=== PATIENT | female | born 1945 | race Caucasian/White ===

== ENCOUNTER 2018-07-14 15:48 | Emergency (ER) | payer MEDICARE, OTHER ==
[2018-07-14] MEDS ORDERED: NORMAL SALINE 1000 ML 1,000 ML IV PRN (16:02)
--- NOTE | 2018-07-14 16:53 | ER Document Report ---
ED General - General Chief Complaint: Fall Injury Stated Complaint: FELL HIT HEAD Time Seen by Provider: 07/14/18 15:58 Mode of Arrival: Wheelchair Information source: Patient Notes: This is a 72-year-old female with a history of breast cancer status post chemotherapy (3 years ago) who presents to the emergency room after a fall at home. Patient was walking down her driveway which is on a slight decline and she lost her footing and fell on her face. She denies loss of consciousness. She does have a an abrasion to the forehead. She is not sure when her last tetanus shot was. Other than some abrasions to the face, she denies any significant pain. TRAVEL OUTSIDE OF THE [place] IN LAST 30 DAYS: No - HPI Onset: Just prior to arrival Onset/Duration: Sudden Quality of pain: Dull Severity: Moderate Pain Level: 2 Associated symptoms: denies: Chest pain, Fever, Shortness of breath Exacerbated by: Denies Relieved by: Denies Similar symptoms previously: No Recently seen / treated by doctor: No - Related Data Allergies/Adverse Reactions: No Known Allergies Allergy (Verified 07/14/18 15:50) Past Medical History - General Information source: Patient - Social History Smoking Status: Unknown if Ever Smoked Cigarette use (# per day): No Chew tobacco use (# tins/day): No Frequency of alcohol use: Occasional Drug Abuse: None Lives with: Family Family History: None Patient has suicidal ideation: No Patient has homicidal ideation: No - Past Medical History Cardiac Medical History: Reports: Hx Hypercholesterolemia, Hx Hypertension Endocrine Medical History: Reports: Hx Diabetes Mellitus Type 2 Renal/ Medical History: Denies: Hx Peritoneal Dialysis GI Medical History: Reports: Hx Gastroesophageal Reflux Disease Past Surgical History: Reports: Hx Breast Surgery - lumpectomy, Hx Cholecystectomy Review of Systems - Review of Systems Constitutional: denies: Chills, Fever EENT: See HPI Cardiovascular: No symptoms reported Respiratory: No symptoms reported Gastrointestinal: No symptoms reported Genitourinary: No symptoms reported Female Genitourinary: No symptoms reported Musculoskeletal: No symptoms reported Skin: No symptoms reported Hematologic/Lymphatic: No symptoms reported Neurological/Psychological: See HPI Physical Exam - Vital signs Vitals: Temp Pulse Resp BP Pulse Ox 97.8 F 109 H 16 151/106 H 97 07/14/18 15:53 07/14/18 15:53 07/14/18 15:53 07/14/18 15:53 07/14/18 15:53 Notes: Physical exam: GENERAL: Patient is alert and oriented x3, no acute distress. HEAD: Normocephalic. Patient does have abrasions to the forehead. No obvious depressed skull fractures. EYES: Pupils equal round and reactive to light, extraocular movements intact, sclera anicteric, conjunctiva are normal. ENT: TMs normal, nares patent, oropharynx clear without exudates. Moist mucous membranes. NECK: Normal range of motion, supple without obvious mass or JVD. LUNGS: Breath sounds clear to auscultation bilaterally and equal. No wheezes rales or rhonchi. HEART: Regular rate and rhythm without murmurs, rubs or gallops. ABDOMEN: Soft, normoactive bowel sounds. No tenderness to palpation. No guarding, no rebound. No masses appreciated. EXTREMITIES: Normal range of motion, no pitting or edema. No clubbing or cyanosis. NEUROLOGICAL: Cranial nerves II through XII grossly intact. Normal speech, moving all extremities. PSYCH: Normal mood, normal affect. SKIN: Raisins to the face. Course - Vital Signs Vital signs: Temp Pulse Resp BP Pulse Ox 97.8 F 89 18 138/90 H 100 07/14/18 15:53 07/14/18 18:43 07/14/18 18:43 07/14/18 18:43 07/14/18 18:43 - Laboratory Result Diagrams: 07/14/18 16:37 07/14/18 16:37 Laboratory results interpreted by me: 07/14/18 16:37 Sodium 135.7 L Chloride 97 L Glucose 197 H - Diagnostic Test Radiology reviewed: Image reviewed, Reports reviewed - CT of the head and neck showed no acute injury - EKG Interpretation by Me Rate: Normal Rhythm: NSR - EKG shows normal sinus rhythm with a ventricular rate of 97, no acute ST-T wave changes Discharge - Discharge Clinical Impression: Contusions to the face, Status post fall, Concussion Hypertension Qualifiers: Hypertension type: unspecified Qualified Code(s): I10 - Essential (primary) hypertension Condition: Stable Disposition: HOME, SELF-CARE Instructions: Concussion ([facility]), Tetanus Immunization Given ([facility]) Additional Instructions: As we discussed, the CTs of the head and neck look good. Your labs were acceptable. I want you to apply bacitracin to your abrasions daily. Keep them open to air. No restrictions on activity. Follow-up with your primary care doctor: Bring a copy of today's labs with you. Return to the emergency room for worsening pain, headache, any concerns or getting worse. Your blood pressure was elevated in the ER today, most likely from the events leading up to why you are here. I would follow-up with your doctor for repeat blood pressure check. Prescriptions: Bacitracin Zinc [Bacitracin Oint 15 gm] 1 applic TP DAILY #1 tube Forms: Elevated Blood Pressure Referrals: BARBARA MONTESINOS MD [Primary Care Provider] - Follow up as needed
[2018-07-14] MEDS ORDERED: DIPH/PERTUSS(ACELL)/TETANUS VAC/PF 0.5 ML SYR (>=10YO) IM ONE (16:54)
[2018-07-14 16:57] LABS: ABSOLUTE EOSINOPHILS # (AUTO) 0.2 10^3/uL (0.0-0.6); ABSOLUTE MONOCYTES (AUTO) 0.6 10^3/uL (0.1-1.4); ABSOLUTE NEUT (AUTO) 4.2 10^3/uL (1.7-8.2); BASOPHILS % (AUTO) 0.6 % (0-2); EOSINOPHILS % (AUTO) 3.5 % (0-6); HEMATOCRIT 44.1 % (36.0-47.0); HEMOGLOBIN 15.4 g/dL (12.0-15.5); MEAN CORPUSCULAR HEMOGLOBIN 32.5 pg (27.0-33.4); MEAN CORPUSCULAR HGB CONC 34.9 g/dL (32.0-36.0); MEAN CORPUSCULAR VOLUME 93 fl (80-97); MONOCYTES % (AUTO) 10.5 % (3-13); PLATELET COUNT 251 10^3/uL (150-450); RED BLOOD COUNT 4.72 10^6/uL (3.72-5.28); RED CELL DISTRIBUTION WIDTH 13.2 % (11.5-14.0); SEGMENTED NEUTROPHILS % (AUTO) 68.4 % (42-78); TOTAL CELLS COUNTED % (AUTO) 100 %; WHITE BLOOD COUNT 6.2 10^3/uL (4.0-10.5)
[2018-07-14 17:15] LABS: ALANINE AMINOTRANSFERASE 45 U/L (9-52); ALBUMIN 4.5 g/dL (3.5-5.0); ALKALINE PHOSPHATASE 82 U/L (38-126); ANION GAP 13 (5-19); ASPARTATE AMINO TRANSFERASE 34 U/L (14-36); BILIRUBIN,DIRECT 0.4 mg/dL (0.0-0.4); BLOOD UREA NITROGEN 13 mg/dL (7-20); CALCIUM 10.1 mg/dL (8.4-10.2); CARBON DIOXIDE 26 mmol/L (22-30); CHLORIDE 97 mmol/L (98-107); CREATINE KINASE 90 U/L (30-135); GLUCOSE 197 mg/dL (75-110); POTASSIUM 4.3 mmol/L (3.6-5.0); SODIUM 135.7 mmol/L (137-145); TOTAL PROTEIN 6.6 g/dL (6.3-8.2)
[2018-07-14 17:27] LABS: TROPONIN I < 0.012 ng/mL
--- NOTE | 2018-07-14 17:38 | RADIOLOGY REPORT (SQ) ---
EXAM DESCRIPTION: CT HEAD WITHOUT COMPLETED DATE/TIME: 07/14/2018 5:09 pm REASON FOR STUDY: Head injury, neck injury, fall COMPARISON: None. TECHNIQUE: Axial images acquired through the brain without intravenous contrast. Images reviewed wi th bone, brain and subdural windows. Additional sagittal and coronal reconstructions were generated. Images stored on PACS. All CT scanners at this facility use dose modulation, iterative reconstruction, and/or weight based d osing when appropriate to reduce radiation dose to as low as reasonably achievable (ALARA). [facility]: Dose Right [facility]: CareDose [facility]: Dose Right [facility]: Teradose 4D [facility]: Smart [employer] RADIATION DOSE: CT Rad equipment meets quality standard of care and radiation dose reduction techniq ues were employed. CTDIvol: 53.2 mGy. DLP: 1017 mGy-cm. mGy. LIMITATIONS: None. FINDINGS: VENTRICLES: Normal size and contour. CEREBRUM: No masses. No hemorrhage. No midline shift. No evidence for acute infarction. Normal gra y/white matter differentiation. No areas of low density in the white matter. CEREBELLUM: No masses. No hemorrhage. No alteration of density. No evidence for acute infarction. EXTRAAXIAL SPACES: No fluid collections. No masses. ORBITS AND GLOBE: No intra- or extraconal masses. Normal contour of globe without masses. CALVARIUM: No fracture. PARANASAL SINUSES: No fluid or mucosal thickening. SOFT TISSUES: No mass or hematoma. OTHER: No other significant finding. IMPRESSION: NORMAL BRAIN CT WITHOUT CONTRAST. EVIDENCE OF ACUTE STROKE: NO. COMMENT: Quality ID # [id number]: Final reports with documentation of one or more dose reduction techniques (e.g., Automated exposure control, adjustment of the mA and/or kV according to patient size, use of iterative reconstruction technique) TECHNICAL DOCUMENTATION: JOB ID: [id number] [employer]- All Rights Reserved Reading location - IP/workstation name: [email or web address]
--- NOTE | 2018-07-14 17:40 | RADIOLOGY REPORT (SQ) ---
EXAM DESCRIPTION: CT CERVICAL SPINE WITHOUT COMPLETED DATE/TIME: 07/14/2018 5:09 pm REASON FOR STUDY: Head injury, neck injury, fall COMPARISON: None. TECHNIQUE: Axial images acquired through the cervical spine without intravenous contrast. Images re viewed with lung, soft tissue and bone windows. Reconstructed coronal and sagittal MPR images review ed. Images stored on PACS. All CT scanners at this facility use dose modulation, iterative reconstruction, and/or weight based d osing when appropriate to reduce radiation dose to as low as reasonably achievable (ALARA). [facility]: Dose Right [facility]: CareDose [facility]: Dose Right [facility]: Teradose 4D [facility]: Smart [employer] RADIATION DOSE: CT Rad equipment meets quality standard of care and radiation dose reduction techniq ues were employed. CTDIvol: 21.5 mGy. DLP: 487 mGy-cm. mGy. LIMITATIONS: None. FINDINGS: ALIGNMENT: Anatomic. MINERALIZATION: Normal. VERTEBRAL BODIES: No fractures or dislocation. DISCS: Multilevel disc space narrowing with osteophytes. FACETS, LATERAL MASSES, POSTERIOR ELEMENTS: Facet arthropathy. No fractures. No dislocation. No ac atka findings. HARDWARE: None in the spine. VISUALIZED RIBS: No fractures. LUNG APICES AND SOFT TISSUES: No significant or acute findings. OTHER: No other significant finding. IMPRESSION: CHRONIC DEGENERATIVE CHANGES. NO ACUTE FINDINGS. TECHNICAL DOCUMENTATION: JOB ID: [id number] Quality ID # [id number]: Final reports with documentation of one or more dose reduction techniques (e.g., Au tomated exposure control, adjustment of the mA and/or kV according to patient size, use of iterative reconstruction technique) 2010 [employer]- All Rights Reserved Reading location - IP/workstation name: [email or web address]
[2018-07-14 18:43] VITALS: BP 138/90
--- NOTE | 2018-07-14 19:23 | EKG REPORT ---
SEVERITY:- OTHERWISE NORMAL ECG - SINUS RHYTHM BORDERLINE LEFT AXIS DEVIATION : Confirmed by: Gonzales Scott MD 14-Jul-2018 19:22:35
== END 2018-07-14 18:43 | disposition home or self-care (01) ==
LOC: ER 15:48
DX: S06.0X0A Concussion without loss of consciousness, initial encounter (principal); S00.83XA Contusion of other part of head, initial encounter; W17.89XA Other fall from one level to another, initial encounter; Y92.008 Other place in unspecified non-institutional (private) residence as the place of occurrence of the external cause; E11.9 Type 2 diabetes mellitus without complications; I10 Essential (primary) hypertension; Z85.3 Personal history of malignant neoplasm of breast; Z92.21 Personal history of antineoplastic chemotherapy
CPT/HCPCS: 36415; 70450; 72125; 80053; 82550; 82553; 84484; 85025; 90471; 90715; 93005; 93010; 99285

== ENCOUNTER 2018-12-14 14:08 | Emergency (ER) | payer MEDICARE, OTHER ==
[2018-12-14] MEDS ORDERED: ACETAMINOPHEN 325 MG TABLET PO ONE (15:37)
[2018-12-14] MEDS ORDERED: ACETAMINOPHEN 325 MG TABLET ONE (15:39)
--- NOTE | 2018-12-14 15:42 | ER Document Report ---
ED Medical Screen (RME) - General Chief Complaint: Fall Injury Stated Complaint: FALL/HEAD INJURY Time Seen by Provider: 12/14/18 15:37 Primary Care Provider: BARBARA MONTESINOS MD [Primary Care Provider] - Follow up as needed Mode of Arrival: Ambulatory Information source: Patient TRAVEL OUTSIDE OF THE [place] IN LAST 30 DAYS: No - HPI Notes: 12/14/18 15:38 Rapid medical exam triage note: Patient is a 73-year-old female states she was walking in her garage and slipped falling forward striking her face. The patient has contusion and abrasion along the face also abrasions on both hands where she went to catch herself. There is no pre-syncope or lightheadedness, and she states she just caught her shoes when she went forward. Patient reports headache since the incident. There is no loss of consciousness. She denies any numbness or focal weakness. No neck pain or back pain or chest pain or abdominal pain. No numbness or paresthesia. On physical exam HEENT there is contusion and abrasion. No facial tenderness but she does describe headache overlying the contusion. Neck nontender Back nontender Cardiovascular regular rate and rhythm without appreciable murmur gallop or rubs Lungs clear to auscultation bilaterally Abdomen obese nontender Extremities no other musculoskeletal tenderness Skin shows abrasions on the hands. Neurologic exam no motor or sensory deficit no cerebellar ataxia no other abnormality. Impression head injury with contusions and abrasions. Tetanus is up-to-date. Will order head CT and local wound care and Tylenol. Please see rest of partner's note for further evaluation and care. 12/14/18 15:40 - Related Data Allergies/Adverse Reactions: No Known Allergies Allergy (Verified 12/14/18 15:04) Past Medical History - General Information source: Patient - Social History Chew tobacco use (# tins/day): No Frequency of alcohol use: None Drug Abuse: None Lives with: Family Family history: Reviewed & Not Pertinent - Past Medical History Cardiac Medical History: Reports: Hx Hypercholesterolemia, Hx Hypertension Endocrine Medical History: Reports: Hx Diabetes Mellitus Type 2 Renal/ Medical History: Denies: Hx Peritoneal Dialysis GI Medical History: Reports: Hx Gastroesophageal Reflux Disease Past Surgical History: Reports: Hx Breast Surgery - lumpectomy, Hx Cholecystectomy Physical Exam - Vital signs Vitals: Temp Pulse Resp BP Pulse Ox 98.1 F 68 16 156/92 H 96 12/14/18 14:35 12/14/18 14:35 12/14/18 14:35 12/14/18 14:35 12/14/18 14:35 Course - Vital Signs Vital signs: Temp Pulse Resp BP Pulse Ox 98.1 F 68 16 156/92 H 96 12/14/18 14:35 12/14/18 14:35 12/14/18 14:35 12/14/18 14:35 12/14/18 14:35 Doctor's Discharge - Discharge Referrals: BARBARA MONTESINOS MD [Primary Care Provider] - Follow up as needed
--- NOTE | 2018-12-14 15:57 | RADIOLOGY REPORT (SQ) ---
EXAM DESCRIPTION: CT HEAD WITHOUT COMPLETED DATE/TIME: 12/14/2018 3:51 pm REASON FOR STUDY: fall r/o bleed COMPARISON: CT brain 07/14/2018 TECHNIQUE: Axial images acquired through the brain without intravenous contrast. Images reviewed wi th bone, brain and subdural windows. Additional sagittal and coronal reconstructions were generated. Images stored on PACS. All CT scanners at this facility use dose modulation, iterative reconstruction, and/or weight based d osing when appropriate to reduce radiation dose to as low as reasonably achievable (ALARA). [facility]: Dose Right [facility]: CareDose [facility]: Dose Right [facility]: Teradose 4D [facility]: [employer] RADIATION DOSE: CT Rad equipment meets quality standard of care and radiation dose reduction techniq ues were employed. CTDIvol: 53.2 mGy. DLP: 937 mGy-cm. mGy. LIMITATIONS: None. FINDINGS: VENTRICLES: Normal size and contour. CEREBRUM: No masses. No hemorrhage. No midline shift. No evidence for acute infarction. Normal gra y/white matter differentiation. No areas of low density in the white matter. CEREBELLUM: No masses. No hemorrhage. No alteration of density. No evidence for acute infarction. EXTRAAXIAL SPACES: No fluid collections. No masses. ORBITS AND GLOBE: No intra- or extraconal masses. Normal contour of globe without masses. CALVARIUM: No fracture. PARANASAL SINUSES: No fluid or mucosal thickening. SOFT TISSUES: No mass or hematoma. OTHER: No other significant finding. IMPRESSION: NORMAL BRAIN CT WITHOUT CONTRAST. EVIDENCE OF ACUTE STROKE: NO. COMMENT: Quality ID # 436: Final reports with documentation of one or more dose reduction techniques (e.g., Automated exposure control, adjustment of the mA and/or kV according to patient size, use of iterative reconstruction technique) TECHNICAL DOCUMENTATION: JOB ID: [id number] [employer]- All Rights Reserved Reading location - IP/workstation name: [email or web address]
[2018-12-14 17:38] VITALS: BP 152/72
--- NOTE | 2018-12-14 17:40 | ER Document Report ---
ED General - General Chief Complaint: Fall Injury Stated Complaint: FALL/HEAD INJURY Time Seen by Provider: 12/14/18 15:37 Primary Care Provider: BARBARA MONTESINOS MD [Primary Care Provider] - Follow up as needed Mode of Arrival: Ambulatory Information source: Patient TRAVEL OUTSIDE OF THE [place] IN LAST 30 DAYS: No - HPI Notes: Patient is a 73-year-old female states she was walking in her garage and slipped falling forward striking her face. The patient has contusion and abrasion along the face also abrasions on both hands where she went to catch herself. There is no pre-syncope or lightheadedness, and she states she just caught her shoes when she went forward. Patient reports headache since the incident. There is no loss of consciousness. She denies any numbness or focal weakness. No neck pain or back pain or chest pain or abdominal pain. No numbness or paresthesia. - Related Data Allergies/Adverse Reactions: No Known Allergies Allergy (Verified 12/14/18 15:04) Past Medical History - General Information source: Patient - Social History Smoking Status: Never Smoker Chew tobacco use (# tins/day): No Frequency of alcohol use: None Drug Abuse: None Lives with: Family Family History: None Patient has suicidal ideation: No Patient has homicidal ideation: No - Past Medical History Cardiac Medical History: Reports: Hx Hypercholesterolemia, Hx Hypertension Endocrine Medical History: Reports: Hx Diabetes Mellitus Type 2 Renal/ Medical History: Denies: Hx Peritoneal Dialysis GI Medical History: Reports: Hx Gastroesophageal Reflux Disease Past Surgical History: Reports: Hx Breast Surgery - lumpectomy, Hx Cholecystectomy Review of Systems - Review of Systems -: Yes All other systems reviewed and negative Physical Exam - Vital signs Vitals: Temp Pulse Resp BP Pulse Ox 98.1 F 68 16 156/92 H 96 12/14/18 14:35 12/14/18 14:35 12/14/18 14:35 12/14/18 14:35 12/14/18 14:35 - Notes Notes: PHYSICAL EXAMINATION: GENERAL: Well-appearing, well-nourished and in no acute distress. HEAD: Midline forehead contusion and abrasion. No crepitance or bony deformity. EYES: Pupils equal round and reactive to light, extraocular movements intact, conjunctiva are normal. ENT: Nares patent, oropharynx clear without exudates. Moist mucous membranes. NECK: Normal range of motion, supple without lymphadenopathy LUNGS: Breath sounds clear to auscultation bilaterally and equal. No wheezes rales or rhonchi. HEART: Regular rate and rhythm without murmurs ABDOMEN: Soft, nontender, nondistended abdomen. No guarding, no rebound. No masses appreciated. Female : deferred Musculoskeletal: Normal range of motion, no pitting or edema. NEUROLOGICAL: Cranial nerves grossly intact. Normal speech, normal gait. Normal sensory, motor exams. No cerebellar ataxia. No other acute abnormality noted. PSYCH: Normal mood, normal affect. SKIN: Warm, Dry, normal turgor. Minor abrasions on both hands. No crepitance or bony deformity or foreign body or evidence for cellulitis. Course - Re-evaluation Re-evalutation: 12/14/18 17:39 CT of the head was negative for acute intracranial process. Patient was able to ambulate per her baseline. - Vital Signs Vital signs: Temp Pulse Resp BP Pulse Ox 98.1 F 68 16 156/92 H 96 12/14/18 14:35 12/14/18 14:35 12/14/18 14:35 12/14/18 14:35 12/14/18 14:35 Discharge - Discharge Clinical Impression: Abrasion Head injury Qualifiers: Encounter type: initial encounter Qualified Code(s): S09.90XA - Unspecified injury of head, initial encounter Contusion Qualifiers: Encounter type: initial encounter Contusion area: head Contusion of head detail: other part of head Qualified Code(s): S00.83XA - Contusion of other part of head, initial encounter Condition: Stable Disposition: HOME, SELF-CARE Instructions: Head Injury Precautions ([facility]) Additional Instructions: Return to the emergency department in case of severe headache, numbness, weakness. Referrals: BARBARA MONTESINOS MD [Primary Care Provider] - Follow up as needed
== END 2018-12-14 17:40 | disposition home or self-care (01) ==
LOC: ER 14:08
DX: S09.90XA Unspecified injury of head, initial encounter (principal); S00.83XA Contusion of other part of head, initial encounter; W01.0XXA Fall on same level from slipping, tripping and stumbling without subsequent striking against object, initial encounter; I10 Essential (primary) hypertension; E11.9 Type 2 diabetes mellitus without complications
CPT/HCPCS: 99283; 70450; A9270

== ENCOUNTER → 2019-01-03 | Outpatient (CLI) | payer MEDICARE, OTHER ==
--- NOTE | 2019-01-03 13:52 | WOMENS IMAGING REPORT ---
EXAM DESCRIPTION: 3D DX MAMMO BILAT COMPLETED DATE/TIME: 01/03/2019 1:23 pm REASON FOR STUDY: N63.10 UNSPECIFIED LUMP IN THE RIGHT BREAST, UNSPECIFIED QUADRANT N63.10 UNSPECIF IED LUMP IN THE RIGHT BREAST, UNSPECIFIED SUE COMPARISON: 2017. TECHNIQUE: Standard craniocaudal and mediolateral oblique views of each breast recorded using digita l acquisition and breast tomosynthesis. Additional right mediolateral view. LIMITATIONS: None. FINDINGS: RIGHT BREAST MASSES: No suspicious masses. CALCIFICATIONS: Benign calcifications. ARCHITECTURAL DISTORTION: Chronic postoperative distortion without progression. DEVELOPING DENSITY: None. ASYMMETRY: None noted. OTHER: No other significant findings. LEFT BREAST MASSES: No suspicious masses. CALCIFICATIONS: Benign calcifications. ARCHITECTURAL DISTORTION: None. DEVELOPING DENSITY: None. ASYMMETRY: None noted. OTHER: No other significant finding. Read with the assistance of CAD: .[facility] - R2 Cenova Version 1.3 .[facility] - R2 Cenova Version 2.1 .[facility] - R2 Cenova Version 2.4 .[facility] - R2 Cenova Version 2.4 .[facility] - R2 Proced Tech Version 9.2 IMPRESSION: Stable post treatment right breast changes. No worrisome findings in either breast. BREAST DENSITY: c. The breasts are heterogeneously dense, which may obscure small masses. BIRAD: 2 Benign findings. RECOMMENDATION: RECOMMENDED FOLLOW UP: Yearly mammography. SPECIFIC INTERVENTION/IMAGING/CONSULTATION RECOMMENDED:No additional intervention/ imaging/consultati on needed at this time. COMMUNICATION:No significant abnormalities to discuss with the patient today. COMMENT: The patient has been notified of the results by letter per SA requirements. Additional no tification policies are in place for contacting patient with suspicious or incomplete findings. Quality ID #[id number]: The [employer] recommends an annual screening mammogram for women aged 40 years or over. This facility utilizes a reminder system to ensure that all patients receive reminder letters, and/or direct phone calls for appointments. This includes reminders for routine scr eening mammograms, diagnostic mammograms, or other Breast Imaging Interventions when appropriate. Th is patient will be placed in the appropriate reminder system. The [employer] (ACR) has developed recommendations for screening MRI of the breast s in certain patient populations, to be used in conjunction with mammography. Breast MRI surveillanc e may be appropriate for women with more than 20% lifetime risk of developing breast cancer as deter mined by genetic testing, significant family history of the disease, or history of mantle radiation f or Hodgkins Disease. ACR Practice Guidelines 2008. DBT Technology DBT is a type of tomographic mammography. With conventional mammography, overlapping breast tissue ma y make lesions difficult to detect, even with good compression. DBT uses an x-ray tube that rotates a round the breast, taking images at different angles. These images are then combined to create thin sl ices of the breast that the radiologist can view as a 3D reconstruction. The Vendscreen unit can perform full-field digital mammograms (2D imaging); or DBT (3D imaging); or both, in a combination mode that quickly performs both the mammogram and the tomosynthesis scan while the breast is still compressed. PQRS 6045F: Fluoroscopic imaging is not utilized for breast tomosynthesis. TECHNICAL DOCUMENTATION: FINDING NUMBER: (1) ASSESSMENT: (1) JOB ID: [id number] [employer]- All Rights Reserved Reading location - IP/workstation name: [email or web address]
== END ==
LOC: WI 12:58
PROVIDERS: ATTEND Nurse Practitioner
DX: R92.2 Inconclusive mammogram (principal)
CPT/HCPCS: 77066; G0279; 77062

== ENCOUNTER 2019-06-17 07:05 | Emergency (ER) | payer MEDICARE, OTHER ==
--- NOTE | 2019-06-17 08:22 | ER Document Report ---
ED Fall - General Chief Complaint: Fall Stated Complaint: FALL Time Seen by Provider: 06/17/19 08:08 Primary Care Provider: ABRIL PIKE FNP [Primary Care Provider] - Follow up as needed Notes: 73-year-old female with history of breast cancer presents to the emergency department after a fall that occurred in the middle of the night. Patient states she got up she could not sleep and was walking in the dark and attempted to sit on her chair and missed. She states her only major complaint is her right shoulder has tenderness to palpation. Patient states that she was nauseated after the fall and vomited a couple of times. Denies loss of consciousness, dizziness or lightheadedness, headache, denies any shortness of breath or dyspnea on exertion, denies any acute chest pain, denies any significant abdominal pain. Of note, patient's heart rate was 114 on arrival. Patient is not on anticoagulation. TRAVEL OUTSIDE OF THE [place] IN LAST 30 DAYS: No - Related data Allergies/Adverse Reactions: No Known Allergies Allergy (Verified 12/14/18 15:04) Past Medical History - Social History Smoking Status: Unknown if Ever Smoked Family History: None Patient has suicidal ideation: No Patient has homicidal ideation: No - Past Medical History Cardiac Medical History: Reports: Hx Hypercholesterolemia, Hx Hypertension Endocrine Medical History: Reports: Hx Diabetes Mellitus Type 2 Renal/ Medical History: Denies: Hx Peritoneal Dialysis GI Medical History: Reports: Hx Gastroesophageal Reflux Disease Past Surgical History: Reports: Hx Breast Surgery - lumpectomy, Hx Cholecystectomy Review of Systems - Review of Systems Constitutional: No symptoms reported EENT: No symptoms reported Cardiovascular: See HPI Respiratory: See HPI Gastrointestinal: See HPI Genitourinary: No symptoms reported Female Genitourinary: No symptoms reported Musculoskeletal: See HPI Skin: No symptoms reported Hematologic/Lymphatic: No symptoms reported Neurological/Psychological: See HPI Physical Exam - Vital signs Vitals: Temp Pulse Resp BP Pulse Ox 98.5 F 114 H 20 170/84 H 95 06/17/19 07:10 06/17/19 07:10 06/17/19 07:10 06/17/19 07:10 06/17/19 07:10 - Notes Notes: PHYSICAL EXAMINATION: Reviewed vital signs and charting by RN GENERAL: Alert, interacts well. No acute distress. HEAD: Normocephalic, atraumatic. EYES: Pupils equal and round. Extraocular movements intact. ENT: Oral mucosa moist, tongue midline. NECK: Full range of motion. Trachea midline. LUNGS: Clear to auscultation bilaterally, no wheezes, rales, or rhonchi. No respiratory distress. HEART: Regular rate and rhythm. No murmur ABDOMEN: soft, non-tender. No distention. Bowel sounds present EXTREMITIES: Moves all 4 extremities spontaneously. No edema, No cyanosis. Tenderness to palpation over right acromium process PSYCH: Normal affect, normal mood. SKIN: Warm, dry, normal turgor. No rashes or lesions noted. Course - Re-evaluation Re-evalutation: 06/17/19 09:40 Overall well-appearing in no acute distress, nontoxic. X-rays of the right clavicle and right shoulder were obtained which were negative for any fracture dislocations. Patient was tachycardic upon arrival so I obtained an EKG which showed a rate of 99, sinus rhythm with some left ventricular hypertrophy. Tropo miguel was negative. This is all very reassuring and I have explained this to patient. I will place a sling and have her follow-up with her primary doctor she is stable for discharge. - Vital Signs Vital signs: Temp Pulse Resp BP Pulse Ox 98.5 F 114 H 20 170/84 H 95 06/17/19 07:10 06/17/19 07:10 06/17/19 07:10 06/17/19 07:10 06/17/19 07:10 - Laboratory Result Diagrams: 06/17/19 08:54 06/17/19 08:54 Laboratory results interpreted by me: 06/17/19 06/17/19 08:54 08:54 Lymph % (Auto) 5.9 L Absolute Neuts (auto) 8.5 H Seg Neutrophils % 83.5 H Sodium 134.7 L Chloride 97 L Glucose 197 H Total Protein 6.2 L Discharge - Discharge Clinical Impression: Fall Qualifiers: Encounter type: initial encounter Qualified Code(s): W19.XXXA - Unspecified fall, initial encounter Right shoulder pain Qualifiers: Chronicity: acute Qualified Code(s): M25.511 - Pain in right shoulder Condition: Good Disposition: HOME, SELF-CARE Additional Instructions: You have been seen in the Emergency Department (ED) today following a fall. Your workup today did not reveal any injuries that require you to stay in the hospital. You can expect, though, to be stiff and sore for the next several days. You can take Tylenol 1000 mg every 6 hours as needed for pain. You can apply a hot pack or electric heating pad to the sore areas. You can also use topical "Aspercreme with lidocaine" to sore areas as needed. Please follow up with your primary care doctor as soon as possible regarding today's ED visit and your recent fall. Call your doctor or return to the ED if you develop a sudden or severe headache, confusion, slurred speech, facial droop, weakness or numbness in any arm or leg, extreme fatigue, vomiting more than two times, severe abdominal pain, or other symptoms that concern you. Referrals: ABRIL PIKE FNP [Primary Care Provider] - Follow up as needed
--- NOTE | 2019-06-17 09:06 | RADIOLOGY REPORT (SQ) ---
EXAM DESCRIPTION: CLAVICLE RIGHT COMPLETED DATE/TIME: 06/17/2019 8:40 am REASON FOR STUDY: fall COMPARISON: Right shoulder three views 06/17/2019 NUMBER OF VIEWS: Two views. TECHNIQUE: Frontal and angled images were acquired of the right clavicle. LIMITATIONS: None. FINDINGS: MINERALIZATION: Normal. BONES: No acute fracture or dislocation. No worrisome bone lesions. SOFT TISSUES: No obvious swelling or foreign body. OTHER: Mild bony spurring at the AC joint. IMPRESSION: NEGATIVE STUDY OF THE RIGHT CLAVICLE. NO RADIOGRAPHIC EVIDENCE OF ACUTE INJURY. TECHNICAL DOCUMENTATION: JOB ID: [id number] [employer]- All Rights Reserved Reading location - IP/workstation name: [email or web address]
--- NOTE | 2019-06-17 09:07 | RADIOLOGY REPORT (SQ) ---
EXAM DESCRIPTION: SHOULDER RIGHT 2 OR MORE VIEWS COMPLETED DATE/TIME: 06/17/2019 8:40 am REASON FOR STUDY: fall COMPARISON: Right clavicle two views same date NUMBER OF VIEWS: Three views. TECHNIQUE: Internal rotation, external rotation, and Y view images acquired of the right shoulder. LIMITATIONS: None. FINDINGS: MINERALIZATION: Normal. BONES: No acute fracture. No worrisome bone lesions. JOINTS: No glenohumeral dislocation. No AC joint widening. Mild AC joint bony spurring VISUALIZED LUNGS AND RIBS: No pneumothorax. No rib fracture. SOFT TISSUES: No radiopaque foreign body. OTHER: No other significant finding. IMPRESSION: No acute fracture or malalignment TECHNICAL DOCUMENTATION: JOB ID: [id number] [employer]- All Rights Reserved Reading location - IP/workstation name: [email or web address]
[2019-06-17 09:18] LABS: ABSOLUTE LYMPHOCYTES (AUTO) 0.6 10^3/uL (0.5-4.7); ABSOLUTE NEUT (AUTO) 8.5 10^3/uL (1.7-8.2); BASOPHILS % (AUTO) 0.2 % (0-2); EOSINOPHILS % (AUTO) 0.2 % (0-6); HEMOGLOBIN 13.7 g/dL (12.0-15.5); LYMPHOCYTES % (AUTO) 5.9 % (13-45); MEAN CORPUSCULAR HEMOGLOBIN 32.7 pg (27.0-33.4); MEAN CORPUSCULAR HGB CONC 35.1 g/dL (32.0-36.0); MEAN CORPUSCULAR VOLUME 93 fl (80-97); MONOCYTES % (AUTO) 10.2 % (3-13); PLATELET COUNT 168 10^3/uL (150-450); RED BLOOD COUNT 4.19 10^6/uL (3.72-5.28); RED CELL DISTRIBUTION WIDTH 13.2 % (11.5-14.0); SEGMENTED NEUTROPHILS % (AUTO) 83.5 % (42-78); TOTAL CELLS COUNTED % (AUTO) 100 %; WHITE BLOOD COUNT 10.2 10^3/uL (4.0-10.5)
[2019-06-17 09:28] LABS: ALBUMIN 4.1 g/dL (3.5-5.0); ALKALINE PHOSPHATASE 73 U/L (38-126); ANION GAP 13 (5-19); ASPARTATE AMINO TRANSFERASE 19 U/L (14-36); BILIRUBIN,DIRECT 0.3 mg/dL (0.0-0.4); BILIRUBIN,TOTAL 0.7 mg/dL (0.2-1.3); BLOOD UREA NITROGEN 10 mg/dL (7-20); CALCIUM 9.5 mg/dL (8.4-10.2); CARBON DIOXIDE 25 mmol/L (22-30); CHLORIDE 97 mmol/L (98-107); GLUCOSE 197 mg/dL (75-110); TOTAL PROTEIN 6.2 g/dL (6.3-8.2)
[2019-06-17 09:58] VITALS: BP 151/72
--- NOTE | 2019-06-17 17:37 | EKG REPORT ---
SEVERITY:- ABNORMAL ECG - SINUS RHYTHM LEFT VENTRICULAR HYPERTROPHY : Confirmed by: Gonzales Scott MD 17-Jun-2019 17:37:16
== END 2019-06-17 10:00 | disposition home or self-care (01) ==
LOC: ER 07:05
DX: M25.511 Pain in right shoulder (principal); W17.89XA Other fall from one level to another, initial encounter; Y93.89 Activity, other specified; R00.0 Tachycardia, unspecified; I11.9 Hypertensive heart disease without heart failure; E11.9 Type 2 diabetes mellitus without complications; Z85.3 Personal history of malignant neoplasm of breast
CPT/HCPCS: 36415; 80053; 84484; 85025; 93005; 93010; 99284

== ENCOUNTER 2019-06-20 20:35 | Emergency (ER) | payer MEDICARE ==
--- NOTE | 2019-06-20 21:22 | ER Document Report ---
ED Medical Screen (RME) - General Chief Complaint: General Weakness Stated Complaint: WEAKNESS Time Seen by Provider: 06/20/19 21:11 Primary Care Provider: ABRIL PIKE FNP [Primary Care Provider] - Follow up as needed Mode of Arrival: Medic Information source: Patient, Relative Notes: 73-year-old female with history of diabetes presents emergency department with feeling weak and nauseated for all week. Patient was evaluated in this emergency department on June 17 for fall. She reports she is unsure if she had a change in LOC. reports this evening she was trying to vomit because she felt nauseated and then she passed out in the hallway. Reports she was so weak she could not get up. Reports decreased appetite. She reports she received Zofran by the ambulance and she felt much better. Denies other symptoms such as fever vomiting diarrhea. She has not been checking her blood sugar. No complaints of shortness of breath or chest pain. I have greeted and performed a rapid initial assessment of this patient. A comprehensive ED assessment and evaluation of the patient, analysis of test results and completion of the medical decision making process will be conducted by additional ED providers. Dictation of this chart was performed using voice recognition software; therefore, there may be some unintended grammatical errors. TRAVEL OUTSIDE OF THE [place] IN LAST 30 DAYS: No - Related Data Allergies/Adverse Reactions: No Known Allergies Allergy (Verified 12/14/18 15:04) Past Medical History - Social History Family history: Reviewed & Not Pertinent - Past Medical History Cardiac Medical History: Reports: Hx Hypercholesterolemia, Hx Hypertension Endocrine Medical History: Reports: Hx Diabetes Mellitus Type 2 Renal/ Medical History: Denies: Hx Peritoneal Dialysis GI Medical History: Reports: Hx Gastroesophageal Reflux Disease Past Surgical History: Reports: Hx Breast Surgery - lumpectomy, Hx Cholecystectomy Doctor's Discharge - Discharge Referrals: ABRIL PIKE FNP [Primary Care Provider] - Follow up as needed
[2019-06-20 21:27] LABS: HEMATOCRIT 37.7 % (36.0-47.0); HEMOGLOBIN 13.5 g/dL (12.0-15.5); MEAN CORPUSCULAR HEMOGLOBIN 32.6 pg (27.0-33.4); MEAN CORPUSCULAR HGB CONC 35.9 g/dL (32.0-36.0); MEAN CORPUSCULAR VOLUME 91 fl (80-97); PLATELET COUNT 212 10^3/uL (150-450); RED BLOOD COUNT 4.15 10^6/uL (3.72-5.28); RED CELL DISTRIBUTION WIDTH 12.9 % (11.5-14.0); WHITE BLOOD COUNT 9.8 10^3/uL (4.0-10.5)
[2019-06-20 21:45] LABS: ALBUMIN 4.2 g/dL (3.5-5.0); ALKALINE PHOSPHATASE 86 U/L (38-126); ANION GAP 12 (5-19); ASPARTATE AMINO TRANSFERASE 17 U/L (14-36); BILIRUBIN,DIRECT 0.5 mg/dL (0.0-0.4); BLOOD UREA NITROGEN 13 mg/dL (7-20); CALCIUM 9.4 mg/dL (8.4-10.2); CARBON DIOXIDE 26 mmol/L (22-30); CHLORIDE 93 mmol/L (98-107); GLUCOSE 199 mg/dL (75-110); POTASSIUM 4.1 mmol/L (3.6-5.0); TOTAL PROTEIN 6.4 g/dL (6.3-8.2)
[2019-06-20 21:47] LABS: ABSOLUTE LYMPHOCYTES# (MANUAL) 0.8 10^3/uL (0.5-4.7); ABSOLUTE MONOCYTES # (MANUAL) 0.6 10^3/uL (0.1-1.4); BAND NEUTROPHILS % (MANUAL) 1 % (3-5); BASOPHILS % (MANUAL) 0 % (0-2); EOSINOPHILS % (MANUAL) 0 % (0-6); LYMPHOCYTES % (MANUAL) 7 % (13-45); MONOCYTES % (MANUAL) 6 % (3-13); OVALOCYTES SLIGHT; PLATELET COMMENT ADEQUATE; SEGMENTED NEUTROPHILS % (MAN) 85 % (42-78); TOTAL CELLS COUNTED 100
[2019-06-20 22:07] LABS: APPEARANCE,URINE SLIGHTLY-CLOUDY; BILIRUBIN,URINE NEGATIVE (NEGATIVE); COLOR,URINE YELLOW; GLUCOSE, URINE NEGATIVE (NEGATIVE); KETONES,URINE 20 mg/dL (NEGATIVE); LEUKOCYTE ESTERASE,URINE MODERATE (NEGATIVE); NITRITE,URINE NEGATIVE (NEGATIVE); PROTEIN,URINE 30 mg/dL (NEGATIVE); URINE SPECIFIC GRAVITY 1.011
[2019-06-20] MEDS ORDERED: CEFUROXIME 500 MG TABLET PO ONE (22:50)
[2019-06-20] MEDS ORDERED: MAGNESIUM SULFATE/D5W 1 GM/100 ML RTUPB IV ONE (22:52)
--- NOTE | 2019-06-20 22:55 | ER Document Report ---
ED General - General Chief Complaint: General Weakness Stated Complaint: WEAKNESS Time Seen by Provider: 06/20/19 21:11 Primary Care Provider: ABRIL PIKE FNP [Primary Care Provider] - Follow up as needed Mode of Arrival: Medic TRAVEL OUTSIDE OF THE [place] IN LAST 30 DAYS: No - HPI Notes: 73-year-old female who presents with not feeling well. Patient symptoms are somewhat vague, she is relatively poor historian but states that last Tuesday she had fallen, did not hit her head, but since then she is felt overall weak and not well. Some is associated intermittent nausea. No significant headache. Tonight felt nauseated but almost vomited but did not quite vomit. Apparently it was so weak she had to crawl back to the bed but feels better now. No associated chest pain. No fever, chills or sweats. No lateralized numbness or weakness. No no diarrhea. No fever. No abdominal pain. Moderate intensity, gradual onset, nonradiating. No other modifying factors, no other associated symptoms, no other provocative or palliative factors. - Related Data Allergies/Adverse Reactions: No Known Allergies Allergy (Verified 12/14/18 15:04) Past Medical History - General Information source: Patient, Relative - Social History Smoking Status: Never Smoker Family History: None Patient has suicidal ideation: No Patient has homicidal ideation: No - Past Medical History Cardiac Medical History: Reports: Hx Hypercholesterolemia, Hx Hypertension Endocrine Medical History: Reports: Hx Diabetes Mellitus Type 2 Renal/ Medical History: Denies: Hx Peritoneal Dialysis GI Medical History: Reports: Hx Gastroesophageal Reflux Disease Past Surgical History: Reports: Hx Breast Surgery - lumpectomy, Hx Cholecystectomy Review of Systems - Review of Systems Notes: Review of systems as in the history of present illness, otherwise negative x 10 systems. Physical Exam - Vital signs Vitals: Temp Pulse Resp BP Pulse Ox 98.6 F 98 18 149/90 H 95 06/20/19 21:21 06/20/19 21:21 06/20/19 21:21 06/20/19 21:21 06/20/19 21:21 - Notes Notes: General: Well developed . HEENT: Normocephalic, atraumatic. Pupils equal round reactive to light. No JVD. Chest: No trauma. Respiratory: Good air exchange, normal excursion. Cardiac: Regular rhythm. No murmurs or gallops. Abdomen: Soft, benign. Nondistended. Nontender. Back: No asymmetry or gross abnormality. Motor: Grossly normal power and tone. Neurologic: Alert, nonfocal. Cranial nerves II-12 are intact. Sensation intact. Vascular: Well perfused. Normal peripheral pulses. Skin: No petechiae or purpura. Course - Re-evaluation Re-evalutation: 06/20/19 22:54 Elderly female with vague symptoms of weakness and associated nausea. No headache but she does have some increased risk for intracranial bleed such as subdural, will obtain head CT. Consider underlying endocrine, metabolic, infectious or other etiologies. We will proceed with fluids, labs, reevaluate Patient was evaluated by the [facility] provider prior to my evaluation. Studies / interventions have been ordered by this provider and may still be pending. Noted to have urine consistent with possible infection. Normal CBC, remainder chemistries unremarkable. Magnesium is depressed, will treat with IV magnesium, oral antibiotics, additional studies are pending at this time. 06/20/19 23:18 Blood pressures improved modestly at 205 systolic and continues to come down. My concern is that over aggressively lowering her blood pressure will create problems, especially as she metabolizes her sodium. She has remained and now remains asymptomatic. She is going to have her blood pressure rechecked in 24 hours. She states that if she is not eating excessive sodium, typically her systolic runs around 130. - Vital Signs Vital signs: Temp Pulse Resp BP Pulse Ox 98.6 F 98 18 149/90 H 95 06/20/19 21:21 06/20/19 21:21 06/20/19 21:21 06/20/19 21:21 06/20/19 21:21 - Laboratory Result Diagrams: 06/20/19 21:10 06/20/19 21:10 Laboratory results interpreted by me: 06/20/19 06/20/19 06/20/19 21:10 21:10 21:47 Seg Neuts % (Manual) 85 H Band Neutrophils % 1 L Lymphocytes % (Manual) 7 L Abs Neuts (Manual) 8.4 H Sodium 131.4 L Chloride 93 L Glucose 199 H Magnesium 0.8 L* Direct Bilirubin 0.5 H Urine Protein 30 H Urine Ketones 20 H Urine Blood SMALL H Urine Urobilinogen 2.0 H Ur Leukocyte Esterase MODERATE H Discharge - Discharge Clinical Impression: Uncontrolled hypertension Condition: Good Disposition: HOME, SELF-CARE Instructions: High Blood Pressure ([facility]) Referrals: ABRIL PIKE FNP [Primary Care Provider] - 06/21/19
[2019-06-21] MEDS ORDERED: CEFUROXIME 500 MG TABLET ONE (00:12)
--- NOTE | 2019-06-21 01:52 | RADIOLOGY REPORT (SQ) ---
EXAM DESCRIPTION: CT HEAD WITHOUT IV CONTRAST COMPLETED DATE/TME: 06/21/2019 00:00 CLINICAL HISTORY: 73 years, Female, fall COMPARISON: 12/14/2018. TECHNIQUE: Noncontrast CT brain. Images stored on PACS. All CT scanners at this facility use dose modulation, iterative reconstruction, and/or weight based dosing when appropriate to reduce radiation dose to as low as reasonably achievable (ALARA). [facility]: Dose Right [facility]: CareDose [facility]: Dose Right [facility]: Teradose 4D [facility]: [employer] LIMITATIONS: None. FINDINGS: Multifocal regions of patchy hypoattenuation are present in a subcortical and periventricular deep white matter distribution, nonspecific; however, most likely represent small vessel ischemic disease, age indeterminate. The ventricles, sulci are enlarged compatible with underlying volume loss. The etienne-white matter differentiation is preserved. There is no mass effect, midline shift, intra- or extra-axial fluid collection/acute hemorrhage. The osseous structures are unremarkable. The paranasal sinuses and mastoid air cells are clear. IMPRESSION: 1. No acute intracranial abnormalities. Nonspecific white matter change most likely small vessel ischemic disease, age indeterminate. 2. CT is insensitive for early evaluation of acute stroke. If there is clinical concern for acute ischemia, an MRI may be considered. TECHNICAL DOCUMENTATION: Quality ID # 436: Final reports with documentation of one or more dose reduction techniques (e.g., Automated exposure control, adjustment of the mA and/or kV according to patient size, use of iterative reconstruction technique) copyright 2011 [employer]- All Rights Reserved
[2019-06-21 02:41] VITALS: BP 155/63
--- NOTE | 2019-06-21 09:10 | EKG REPORT ---
SEVERITY:- BORDERLINE ECG - SINUS RHYTHM LVH BY VOLTAGE : Confirmed by: Jason Saini 21-Jun-2019 09:09:42
== END 2019-06-21 02:45 | disposition home or self-care (01) ==
LOC: ER 20:35
DX: N30.00 Acute cystitis without hematuria (principal); R53.1 Weakness; E83.42 Hypomagnesemia; I10 Essential (primary) hypertension; R11.0 Nausea; W19.XXXA Unspecified fall, initial encounter; E11.9 Type 2 diabetes mellitus without complications
CPT/HCPCS: 93005; 99284; 96365; 36415; 83735; 85025; 80053; 81001; 84484; 70450; 93010; A9270; J3475; J3490

== ENCOUNTER 2020-04-11 10:25 | Emergency (ER) | payer MEDICARE ==
--- NOTE | 2020-04-11 10:44 | ER Document Report ---
ED Medical Screen (RME) - General Chief Complaint: Fall Stated Complaint: FALL Time Seen by Provider: 04/11/20 10:36 Primary Care Provider: ABRIL PIKE FNP [Primary Care Provider] - Follow up as needed Mode of Arrival: Wheelchair Information source: Patient Notes: 74-year-old female presents to ED for complaint of falling frequently since a month ago. She states a month ago she fell and hit her head pretty hard and ended up having to stay at [facility] for several days due to the concussion. She states she has had some problems with her thought process able to get thoughts together and remembering things this fall. She states she has lost balance and is very unsteady on her feet since this fall. She states she lives at home with her . She states she is on blood thinners. She states she does not think she has hit her head again since a month ago but she is not sure. She is a former smoker does not drink or use any drugs and lives w ith her . I have greeted and performed a rapid initial assessment of this patient. A comprehensive ED assessment and evaluation of the patient, analysis of test results and completion of medical decision making process will be conducted by an additional ED providers. TRAVEL OUTSIDE OF THE [place] IN LAST 30 DAYS: No - Related Data Allergies/Adverse Reactions: No Known Allergies Allergy (Verified 12/14/18 15:04) Past Medical History - Social History Family history: Reviewed & Not Pertinent - Past Medical History Cardiac Medical History: Reports: Hx Hypercholesterolemia, Hx Hypertension Endocrine Medical History: Reports: Hx Diabetes Mellitus Type 2 Renal/ Medical History: Denies: Hx Peritoneal Dialysis GI Medical History: Reports: Hx Gastroesophageal Reflux Disease Past Surgical History: Reports: Hx Breast Surgery - lumpectomy, Hx Cholecystectomy Physical Exam - Vital signs Vitals: Temp Pulse Resp BP Pulse Ox 98.4 F 103 H 20 179/91 H 98 04/11/20 10:33 04/11/20 10:33 04/11/20 10:33 04/11/20 10:33 04/11/20 10:33 Course - Vital Signs Vital signs: Temp Pulse Resp BP Pulse Ox 98.4 F 103 H 20 179/91 H 98 04/11/20 10:33 04/11/20 10:33 04/11/20 10:33 04/11/20 10:33 04/11/20 10:33 Doctor's Discharge - Discharge Referrals: ABRIL PIKE FNP [Primary Care Provider] - Follow up as needed
[2020-04-11 11:17] LABS: ABSOLUTE EOSINOPHILS # (AUTO) 0.2 10^3/uL (0.0-0.6); ABSOLUTE LYMPHOCYTES (AUTO) 0.8 10^3/uL (0.5-4.7); ABSOLUTE MONOCYTES (AUTO) 0.4 10^3/uL (0.1-1.4); ABSOLUTE NEUT (AUTO) 4.6 10^3/uL (1.7-8.2); BASOPHILS % (AUTO) 0.5 % (0-2); EOSINOPHILS % (AUTO) 2.8 % (0-6); HEMATOCRIT 40.8 % (36.0-47.0); HEMOGLOBIN 14.3 g/dL (12.0-15.5); LYMPHOCYTES % (AUTO) 13.5 % (13-45); MEAN CORPUSCULAR HEMOGLOBIN 32.7 pg (27.0-33.4); MEAN CORPUSCULAR HGB CONC 35.1 g/dL (32.0-36.0); MEAN CORPUSCULAR VOLUME 93 fl (80-97); MONOCYTES % (AUTO) 7.3 % (3-13); PLATELET COUNT 243 10^3/uL (150-450); RED BLOOD COUNT 4.38 10^6/uL (3.72-5.28); RED CELL DISTRIBUTION WIDTH 13.6 % (11.5-14.0); SEGMENTED NEUTROPHILS % (AUTO) 75.9 % (42-78); TOTAL CELLS COUNTED % (AUTO) 100 %; WHITE BLOOD COUNT 6.1 10^3/uL (4.0-10.5)
[2020-04-11 11:21] LABS: APPEARANCE,URINE CLEAR; BILIRUBIN,URINE NEGATIVE (NEGATIVE); COLOR,URINE YELLOW; GLUCOSE, URINE 150 mg/dL (NEGATIVE); INTERNATIONAL RATION (INR) 0.95; KETONES,URINE NEGATIVE (NEGATIVE); LEUKOCYTE ESTERASE,URINE MODERATE (NEGATIVE); NITRITE,URINE NEGATIVE (NEGATIVE); PROTEIN,URINE NEGATIVE (NEGATIVE); PROTHROMBIN TIME 12.7 SEC (11.4-15.4); URINE SPECIFIC GRAVITY 1.014; UROBILINOGEN,URINE NEGATIVE mg/dL (<2.0)
[2020-04-11 11:22] LABS: PARTIAL THROMBOPLASTIN TIME 24.5 SEC (23.5-35.8)
[2020-04-11 11:44] LABS: ALBUMIN 4.8 g/dL (3.5-5.0); ALKALINE PHOSPHATASE 69 U/L (38-126); ANION GAP 12 (5-19); ASPARTATE AMINO TRANSFERASE 34 U/L (14-36); BILIRUBIN,DIRECT 0.1 mg/dL (0.0-0.4); BILIRUBIN,TOTAL 0.6 mg/dL (0.2-1.3); BLOOD UREA NITROGEN 16 mg/dL (7-20); CALCIUM 9.6 mg/dL (8.4-10.2); CARBON DIOXIDE 29 mmol/L (22-30); CHLORIDE 96 mmol/L (98-107); GLUCOSE 309 mg/dL (75-110); POTASSIUM 3.7 mmol/L (3.6-5.0); TOTAL PROTEIN 7.1 g/dL (6.3-8.2)
--- NOTE | 2020-04-11 11:56 | RADIOLOGY REPORT (SQ) ---
EXAM DESCRIPTION: CT HEAD WITHOUT IMAGES COMPLETED DATE/TIME: 04/11/2020 11:23 am REASON FOR STUDY: altered mental and balance since fall month ago COMPARISON: 12/14/2018 TECHNIQUE: Axial images acquired through the brain without intravenous contrast. Images reviewed wi th bone, brain and subdural windows. Additional sagittal and coronal reconstructions were generated. Images stored on PACS. All CT scanners at this facility use dose modulation, iterative reconstruction, and/or weight based d osing when appropriate to reduce radiation dose to as low as reasonably achievable (ALARA). [facility]: Dose Right [facility]: CareDose [facility]: Dose Right [facility]: Teradose 4D [facility]: [employer] RADIATION DOSE: CT Rad equipment meets quality standard of care and radiation dose reduction techniq ues were employed. CTDIvol: 53.2 mGy. DLP: 1070 mGy-cm. mGy. LIMITATIONS: None. FINDINGS: VENTRICLES: Prominent. CEREBRUM: No masses. No hemorrhage. No midline shift. Areas of low density in the white matter mos t likely due to chronic micro-vascular ischemic change. No evidence for acute infarction. CEREBELLUM: No masses. No hemorrhage. No alteration of density. No evidence for acute infarction. EXTRAAXIAL SPACES: Mild age-related involutional change. No fluid collections. No masses. ORBITS AND GLOBE: No intra- or extraconal masses. Normal contour of globe without masses. CALVARIUM: No fracture. PARANASAL SINUSES: No fluid or mucosal thickening. SOFT TISSUES: No mass or hematoma. OTHER: No other significant finding. IMPRESSION: MILD CHRONIC CHANGES OF ATROPHY AND MICROVASCULAR ISCHEMIA. NO ACUTE PROCESS. EVIDENCE OF ACUTE STROKE: NO. TECHNICAL DOCUMENTATION: JOB ID: [id number] Quality ID # [id number]: Final reports with documentation of one or more dose reduction techniques (e.g., Au tomated exposure control, adjustment of the mA and/or kV according to patient size, use of iterative reconstruction technique) 2010 [employer]- All Rights Reserved Reading location - IP/workstation name: [email or web address]
--- NOTE | 2020-04-11 15:13 | ER Document Report ---
ED General - General Chief Complaint: Fall Stated Complaint: FALL Time Seen by Provider: 04/11/20 10:36 Primary Care Provider: ABRIL PIKE FNP [Primary Care Provider] - Follow up as needed Mode of Arrival: Wheelchair Notes: 74-year-old woman presents to the emergency department with a history of a fall and head injury approximately 4 weeks ago. She states that she spent 2 nights at the [facility] after the fall and was diagnosed with a concussion. She has continued to have episodic headaches and dizziness and not feeling her normal self. She denies nausea and vomiting or loss of function. She also denies any interval falls. TRAVEL OUTSIDE OF THE [place] IN LAST 30 DAYS: No - Related Data Allergies/Adverse Reactions: No Known Allergies Allergy (Verified 12/14/18 15:04) Home Medications: Atorvastatin, Clopidogrel, Gabapentin, Lisinopril, Metformin, Pantaprazole. Past Medical History - General Information source: Patient - Social History Smoking Status: Former Smoker Family History: None - Past Medical History Cardiac Medical History: Reports: Hx Hypercholesterolemia, Hx Hypertension Endocrine Medical History: Reports: Hx Diabetes Mellitus Type 2 Renal/ Medical History: Denies: Hx Peritoneal Dialysis GI Medical History: Reports: Hx Gastroesophageal Reflux Disease Past Surgical History: Reports: Hx Breast Surgery - lumpectomy, Hx Cholecystectomy Review of Systems - Review of Systems Notes: Constitutional: Negative for fever. HENT: Negative for sore throat. Eyes: Negative for visual changes. Cardiovascular: Negative for chest pain. Respiratory: Negative for shortness of breath. Gastrointestinal: Negative for abdominal pain, vomiting or diarrhea. Genitourinary: Negative for dysuria. Musculoskeletal: Negative for back pain. Skin: Negative for rash. Neurological: See HPI 10 point ROS negative except as marked above and in HPI. Physical Exam - Vital signs Vitals: Temp Pulse Resp BP Pulse Ox 98.4 F 103 H 20 179/91 H 98 04/11/20 10:33 04/11/20 10:33 04/11/20 10:33 04/11/20 10:33 04/11/20 10:33 - Notes Notes: PHYSICAL EXAMINATION: Physical Exam: General: Well-nourished well-developed 74-year-old woman in no acute distress HEENT: NC/AT, pupils equal round and reactive to light, MM moist,nares clear, oropharynx clear, airway patent Neck: supple, no adenopathy, no masses. Good range of motion Lungs: clear, no wheezing, no rales no rhonchi CVS: Regular rate and rhythm no murmur gallop or rub Abdomen: Soft, active, nontender, no masses, no hepatosplenomegaly Ext: No edema, clubbing or cyanosis. Neuro: Alert and responsive, moving all 4 extremities on command, cranial nerves intact, no focal findings Skin: Intact no open lesions, no rash Course - Re-evaluation Re-evalutation: 04/11/20 15:11 Patient has been stable in the emergency department with no focal neurologic findings. States that she is ready to go. I explained to her that her symptoms may be residual concussion symptoms which can last sometimes 6 to 8 weeks. I encouraged her to use Tylenol for her headache and pain and to follow-up with her primary care doctor as needed. CT scan of the head today was negative. The patient acknowledges understanding of this plan and is in agreement. - Vital Signs Vital signs: Temp Pulse Resp BP Pulse Ox 98.4 F 103 H 20 179/91 H 98 04/11/20 10:33 04/11/20 10:33 04/11/20 10:33 04/11/20 10:33 04/11/20 10:33 - Laboratory Result Diagrams: 04/11/20 11:01 04/11/20 11:01 Laboratory results interpreted by me: 04/11/20 04/11/20 11:01 11:01 Sodium 136.7 L Chloride 96 L Est GFR (MDRD) Non-Af 59 L Glucose 309 H Urine Glucose (UA) 150 H Ur Leukocyte Esterase MODERATE H 04/11/20 15:12 I have reviewed laboratory data and used this information for the treatment decisions regarding the patient. - Diagnostic Test Radiology reviewed: Image reviewed, Reports reviewed Radiology results interpreted by me: 04/11/20 15:12 CT head noncontrast mild chronic microvascular ischemic changes, no acute stroke, no hemorrhage. Discharge - Discharge Clinical Impression: Sluggishness Headache Qualifiers: Headache type: unspecified Headache chronicity pattern: unspecified pattern Intractability: not intractable Qualified Code(s): R51 - Headache Concussion Qualifiers: Encounter type: initial encounter Loss of consciousness presence/duration: without LOC Qualified Code(s): S06.0X0A - Concussion without loss of consciousness, initial encounter Condition: Good Disposition: HOME, SELF-CARE Instructions: Post-Concussion Syndrome ([facility]) Additional Instructions: You are seen in the emergency department with symptoms which were related to a previous fall and head injury. The symptoms that you exhibit may be residual concussion symptoms. Please use Tylenol for the headache and pain, continue to drink plenty of fluids, please follow-up with your doctor as needed. HOME CARE INSTRUCTIONS & INFORMATION: Thank you for choosing us for your medical needs. We hope you're satisfied with the care you received. After you leave, you must properly care for your problem and, at the same time, observe its progress. Any condition can change. Some illnesses can change rapidly over hours or days. If your condition worsens, return to the Emergency Department or see your physician promptly. ABOUT YOUR X-RAYS AND EKG'S: If you had an EKG or X-rays taken, they have been read by the Emergency Physician. The X-rays and EKG's will also be read by a Radiologist or Agricultural Specialist within 24 hours. If discrepancies are noted, you will be notified by telephone. Please be certain the ED has a correct telephone number & address where you can be reached. Also, realize that some fractures or abnormalities do not show up on initial X-rays. If your symptoms continue, see your physician. ABOUT YOUR LABORATORY TEST: If you had laboratory tests, the results have been reviewed by the Emergency Physician. Some test results (for example cultures) may not be available for several days. You will be contacted if any test result shows you need additional treatment. Please be certain the ED has a correct telephone number and address where you can be reached. ABOUT YOUR MEDICATIONS: You will receive instructions on how to take your medicine on the prescription label you receive. Additional information may be provided by the Pharmacy. If you have questions afterwards, call the ED for clarification or further instructions. Some prescribed medications may cause drowsiness. Do not perform tasks such as driving a car or operating machinery without consulting your Pharmacist. If you feel you need a refill of pain medication, your condition will need re-evaluation. Please do not call for a refill of any medication. ABOUT YOUR SIGNATURE: Signature of this document acknowledges to followin. Understanding that you received emergency treatment and that you may be released before al medical problems are known or treated. Please be certain the ED has a correct phone number & address where you can be reached. 2. Acknowledgement that you will arrange for follow-up care as recommended. 3. Authorization for the Emergency Physician to provide information to your follow-up Physician in order to maximize your care. AT ANY TIME, IF YOUR SYMPTOMS CHANGE SIGNIFICANTLY OR WORSEN OR YOU DEVELOP NEW SYMPTOMS, RETURN TO THE EMERGENCY DEPARTMENT IMMEDIATELY FOR RE-EVALUATION. OUR GOAL IS TO PROVIDE EXCELLENT MEDICAL CARE! WE HOPE THAT WE HAVE MET YOUR EXPECTATIONS DURING YOUR EMERGENCY DEPARTMENT VISIT AND THAT YOU FEEL YOU HAVE RECEIVED EXCELLENT CARE! Referrals: ABRIL PIKE FNP [Primary Care Provider] - Follow up as needed
[2020-04-11 15:48] VITALS: BP 172/91
== END 2020-04-11 15:49 | disposition home or self-care (01) ==
LOC: ER 10:25
DX: S06.0X0A Concussion without loss of consciousness, initial encounter (principal); R51 Headache; R42 Dizziness and giddiness; W19.XXXA Unspecified fall, initial encounter; Z79.899 Other long term (current) drug therapy; Z79.84 Long term (current) use of oral hypoglycemic drugs; E11.9 Type 2 diabetes mellitus without complications; I10 Essential (primary) hypertension
CPT/HCPCS: 36415; 70450; 80053; 81001; 85025; 85610; 85730; 87086; 99284

== ENCOUNTER 2020-04-14 22:33 | Emergency (ER) | payer MEDICARE ==
--- NOTE | 2020-04-15 00:20 | RADIOLOGY REPORT (SQ) ---
EXAM DESCRIPTION: XR CHEST 1 VIEW COMPLETED DATE/TME: 04/14/2020 23:33 CLINICAL HISTORY: 74 years, Female, weakness COMPARISON: None. NUMBER OF VIEWS: 1 TECHNIQUE: Portable AP upright view of the chest was obtained at 11:53 PM LIMITATIONS: None. FINDINGS: The heart size is within normal limits. Aortic calcifications are noted. There is eventration of the right hemidiaphragm. Lungs appear clear. There is no evidence of pleural effusion or pneumothorax. IMPRESSION: No acute abnormality as above. copyright 2010 [employer]- All Rights Reserved
[2020-04-15 00:23] LABS: ABSOLUTE EOSINOPHILS # (AUTO) 0.2 10^3/uL (0.0-0.6); ABSOLUTE LYMPHOCYTES (AUTO) 0.8 10^3/uL (0.5-4.7); ABSOLUTE MONOCYTES (AUTO) 0.5 10^3/uL (0.1-1.4); ABSOLUTE NEUT (AUTO) 5.3 10^3/uL (1.7-8.2); BASOPHILS % (AUTO) 0.5 % (0-2); EOSINOPHILS % (AUTO) 3.2 % (0-6); HEMATOCRIT 38.4 % (36.0-47.0); HEMOGLOBIN 13.9 g/dL (12.0-15.5); LYMPHOCYTES % (AUTO) 11.5 % (13-45); MEAN CORPUSCULAR HEMOGLOBIN 33.8 pg (27.0-33.4); MEAN CORPUSCULAR HGB CONC 36.3 g/dL (32.0-36.0); MEAN CORPUSCULAR VOLUME 93 fl (80-97); MONOCYTES % (AUTO) 7.6 % (3-13); PLATELET COUNT 241 10^3/uL (150-450); RED BLOOD COUNT 4.12 10^6/uL (3.72-5.28); RED CELL DISTRIBUTION WIDTH 14.1 % (11.5-14.0); SEGMENTED NEUTROPHILS % (AUTO) 77.2 % (42-78); TOTAL CELLS COUNTED % (AUTO) 100 %; WHITE BLOOD COUNT 6.9 10^3/uL (4.0-10.5)
[2020-04-15 00:28] LABS: VENOUS BLOOD BASE EXCESS 1.1 mmol/L; VENOUS BLOOD HCO3 28.6 mmol/L (20-32); VENOUS BLOOD PCO2 57.2 mmHg (35-63); VENOUS BLOOD PH 7.32 (7.30-7.42)
[2020-04-15 00:30] LABS: INTERNATIONAL RATION (INR) 0.93; PROTHROMBIN TIME 12.5 SEC (11.4-15.4)
[2020-04-15 00:48] LABS: APPEARANCE,URINE CLEAR; BILIRUBIN,URINE NEGATIVE (NEGATIVE); COLOR,URINE YELLOW; GLUCOSE, URINE >=500 mg/dL (NEGATIVE); KETONES,URINE NEGATIVE (NEGATIVE); PROTEIN,URINE 30 mg/dL (NEGATIVE); URINE SPECIFIC GRAVITY 1.022; UROBILINOGEN,URINE NEGATIVE mg/dL (<2.0)
[2020-04-15] MEDS ORDERED: NORMAL SALINE 1000 ML 1,000 ML IV ONE (00:57)
[2020-04-15 01:17] LABS: ALBUMIN 4.4 g/dL (3.5-5.0); ALKALINE PHOSPHATASE 77 U/L (38-126); ANION GAP 11 (5-19); ASPARTATE AMINO TRANSFERASE 31 U/L (14-36); BILIRUBIN,TOTAL 0.5 mg/dL (0.2-1.3); BLOOD UREA NITROGEN 12 mg/dL (7-20); CALCIUM 9.4 mg/dL (8.4-10.2); CARBON DIOXIDE 26 mmol/L (22-30); CHLORIDE 99 mmol/L (98-107); GLUCOSE 305 mg/dL (75-110); POTASSIUM 4.5 mmol/L (3.6-5.0)
--- NOTE | 2020-04-15 01:35 | RADIOLOGY REPORT (SQ) ---
EXAM DESCRIPTION: CT HEAD WITHOUT IV CONTRAST COMPLETED DATE/TME: 04/15/2020 00:00 CLINICAL HISTORY: fall, dizziness COMPARISON: 04/11/2020 TECHNIQUE: Axial CT of the head obtained from the skull apex to the skull base without contrast. FINDINGS: No acute intracranial hemorrhage identified. No mass, mass effect, shift of the midline, abnormal extra-axial fluid collection or CT evidence of acute ischemic change identified. The ventricular system and sulcal spaces are mildly enlarged compatible with mild cerebral atrophy. Scattered areas of hypodensity throughout the supratentorial white matter are nonspecific and may be related to chronic small vessel ischemic change. The visualized paranasal sinuses and the mastoids are clear. No skull fracture identified. Visualized orbits and globes are unremarkable. Atherosclerotic calcification of the intracranial internal carotid arteries. Minimal contusion in the posterior right scalp soft tissues. IMPRESSION: 1. No acute intracranial abnormality by CT criteria. This exam was performed according to our departmental dose-optimization program, which includes automated exposure control, adjustment of the mA and/or kV according to patient size and/or use of iterative reconstruction technique.
[2020-04-15 01:54] LABS: PHOSPHORUS 3.4 mg/dL (2.5-4.5)
[2020-04-15] MEDS: MAGNESIUM SULFATE/D5W 1 GM/100 ML RTUPB IV SCH ×2 (02:27→03:32)
--- NOTE | 2020-04-15 05:27 | ER Document Report ---
Entered by ROSA YODER SCRIBE 04/15/20 0019 Acting as scribe for:HARRY ZAMAN DO ED General - General Chief Complaint: General Weakness Stated Complaint: WEAK AND FALLING Time Seen by Provider: 04/14/20 22:57 Primary Care Provider: ABRIL PIKE FNP [NURSE PRACTITIONER] - Follow up in 3-5 days Information source: Patient Notes: This 74 year old female patient presents to the emergency department today with concerns for multiple falls today. Patient reports she has fallen three times today and has hit her head. She is anticoagulated. Patient states sometimes she feels dizzy but for the most part she "just falls". Patient denies nausea, pain, urinary symptoms, cough, fevers, or recent changes to medication. TRAVEL OUTSIDE OF THE [place] IN LAST 30 DAYS: No - Related Data Allergies/Adverse Reactions: No Known Allergies Allergy (Verified 12/14/18 15:04) Home Medications: Metformin. Lisinopril. Atorvastatin Past Medical History - General Information source: Patient - Social History Smoking Status: Former Smoker Cigarette use (# per day): No Frequency of alcohol use: None Drug Abuse: None Lives with: Family Family History: None - Past Medical History Cardiac Medical History: Reports: Hx Hypercholesterolemia, Hx Hypertension Endocrine Medical History: Reports: Hx Diabetes Mellitus Type 2 GI Medical History: Reports: Hx Gastroesophageal Reflux Disease Past Surgical History: Reports: Hx Breast Surgery - lumpectomy, Hx Cholecystectomy Review of Systems - Review of Systems Constitutional: See HPI, Other - frequent falls. denies: Fever EENT: No symptoms reported Cardiovascular: See HPI, Dizziness Respiratory: denies: Cough Gastrointestinal: denies: Nausea Genitourinary: denies: Dysuria Female Genitourinary: No symptoms reported Musculoskeletal: No symptoms reported Skin: No symptoms reported Hematologic/Lymphatic: No symptoms reported Neurological/Psychological: No symptoms reported -: Yes All other systems reviewed and negative Physical Exam - Vital signs Vitals: Temp 98.1 F 04/14/20 22:33 Interpretation: Normal - General General appearance: Appears well, Alert - HEENT Head: Normocephalic, Tenderness - posterior head Eyes: Normal Pupils: PERRL - Respiratory Respiratory status: No respiratory distress Chest status: Nontender Breath sounds: Normal Chest palpation: Normal - Cardiovascular Rhythm: Regular Heart sounds: Normal auscultation Murmur: No - Abdominal Inspection: Normal Distension: No distension Bowel sounds: Normal Tenderness: Nontender Organomegaly: No organomegaly - Back Back: Normal, Nontender - Extremities General upper extremity: Normal inspection, Nontender, Normal color, Normal ROM, Normal temperature General lower extremity: Normal inspection, Nontender, Normal color, Normal ROM, Normal temperature, Normal weight bearing. No: Pete's sign - Neurological Neuro grossly intact: Yes Cognition: Normal Orientation: AAOx4 [place] Coma Scale Eye Opening: Spontaneous [place] Coma Scale Verbal: Oriented Charissa Coma Scale Motor: Obeys Commands [place] Coma Scale Total: 15 Speech: Normal Motor strength normal: LUE, RUE, LLE, RLE Sensory: Normal - Psychological Associated symptoms: Normal affect, Normal mood - Skin Skin Temperature: Warm Skin Moisture: Dry Skin Color: Normal Course - Re-evaluation Re-evalutation: 04/15/20 05:21 Patient is a 74-year-old female who comes in with generalized weakness which she has had for a while. Per , patient has been declining. No new medications that they are aware of. Patient states that she falls often. States that she was seen last time she fell and hit her head. Denies trouble breathing, cough, fever, dysuria, frequency, abdominal pain, nausea vomiting, or diarrhea. Patient states that these symptoms have been going on for a while. States that his daughter who is a nurse would like the patient to see a neuro logist. Does not note any seizure activity or episodes of staring. States that sometimes the patient becomes confused and that when she walks with a walker she looks around in stores are off balance and she falls. Today in the emergency department. Patient had a slightly elevated lactate although no evidence for infections. She takes metformin and could have some lactic acidosis from this. Patient's magnesium was noted to be 1.2 and that was replaced here in the emergency department. Advised to increase her magnesium intake and will be discharged home with prescription for magnesium 400 mg 3 times a day. Patient has a follow-up appointment with her doctor on Tuesday which the patient's states that he is not allowed to go into because he coughs from his COPD. I have advised the patient and her to discuss a neurology referral as well as EEG and possibly evaluation for dementia. Understand and agree with this plan. Again, no acute or emergent findings today that meet any admission criteria or further diagnostic work-up at this time. Return for further concerns or symptoms. Stable for discharge. - Vital Signs Vital signs: Temp Pulse Resp BP Pulse Ox 98.1 F 19 97 04/14/20 22:33 04/14/20 23:00 04/14/20 23:00 - Laboratory Result Diagrams: 04/15/20 00:10 04/15/20 00:10 Laboratory results interpreted by me: 04/15/20 04/15/20 04/15/20 00:10 00:10 00:10 MCH 33.8 H MCHC 36.3 H RDW 14.1 H Lymph % (Auto) 11.5 L Sodium 135.5 L Est GFR (MDRD) Non-Af 58 L Glucose 305 H Lactic Acid 2.4 H Magnesium Total Protein 6.0 L Urine Protein Urine Glucose (UA) 04/15/20 04/15/20 00:10 00:34 MCH MCHC RDW Lymph % (Auto) Sodium Est GFR (MDRD) Non-Af Glucose Lactic Acid Magnesium 1.2 L* Total Protein Urine Protein 30 H Urine Glucose (UA) >=500 H - Diagnostic Test Radiology reviewed: Reports reviewed - EKG Interpretation by Me EKG shows normal: Sinus rhythm Rate: Normal Rhythm: NSR - 70, no ST changes Discharge - Discharge Clinical Impression: Weakness, Hypomagnesemia Condition: Stable Disposition: HOME, SELF-CARE Instructions: Weakness ([facility]) Additional Instructions: Your Magnesium was low today. Please take Magnesium as prescribed. Please talk to your doctor about seeing a neurologist for and EEG and evaluation for possible dementia. Have your provider or doctor call your during your appointment this week for collateral information. Prescriptions: Magnesium Oxide [Magnesium] 400 mg PO TID #60 tablet Referrals: ABRIL PIKE FNP [NURSE PRACTITIONER] - Follow up in 3-5 days I personally performed the services described in the documentation, reviewed and edited the documentation which was dictated to the scribe in my presence, and it accurately records my words and actions.
[2020-04-15 05:28] VITALS: BP 170/91
--- NOTE | 2020-04-15 09:37 | EKG REPORT ---
SEVERITY:- NORMAL ECG - SINUS RHYTHM : Confirmed by: Jason Saini 15-Apr-2020 09:37:05
== END 2020-04-15 05:27 | disposition home or self-care (01) ==
LOC: ER 22:33
DX: E83.42 Hypomagnesemia (principal); R53.1 Weakness; R29.6 Repeated falls; R42 Dizziness and giddiness; I10 Essential (primary) hypertension; E11.9 Type 2 diabetes mellitus without complications; E78.00 Pure hypercholesterolemia, unspecified; Z79.84 Long term (current) use of oral hypoglycemic drugs; Z79.899 Other long term (current) drug therapy; Z87.891 Personal history of nicotine dependence
CPT/HCPCS: 93005; 99285; 96361; 96365; 96366; 36415; 82962; 82550; 83605; 83735; 84100; 84443; 85025; 85610; 80053; 81001; 84484; 82803; 71045; 70450; 93010; J3475; J7030

== ENCOUNTER 2020-05-03 10:32 | Emergency (ER) | payer MEDICARE ==
--- NOTE | 2020-05-03 11:34 | ER Document Report ---
ED General - General Stated Complaint: FALL/HEAD INJURY Primary Care Provider: ELIZABETH HIGUERA MD [Primary Care Provider] - Follow up as needed Notes: Patient is a 74-year-old white female with a past medical history significant for type 2 diabetes, history of breast cancer in remission with a problem with chronic falls, head injury sustained in the summer 2019 with persistent posterior lean per the patient's daughter who is a rehab nurse who presents to the emergency department with a chief complaint of slight confusion. Patient's daughter gives majority the history. She states that the patient has been falling a lot lately. She fall and struck the back of her head on concrete and around March 2020 [place] head CT, was subsequently discharged. She states since that time the patient has had a "posterior lean". She states this has increased her risk for fall and she has been falling a lot. She states that she fell again between then and now and was seen and a another emergency department in [place], they did an MRI of her brain and she states it was normal. She reports they did find a UTI that they felt contributed to her mentation at that visit, placed her on Bactrim but the daughter is worried that she never heard from them regarding culture and sensitivities so she is not sure if the UTI was treated accordingly. She states this morning her mother did not eat breakfast has not been checking her blood sugar and she became pale and appeared as though she did not feel well and was slightly confused. Patient reports that she realized she had not ate breakfast, the patient had no supplies to check her blood sugar so she could not check it. She fed her some crackers and a Mountain Dew. She states her color instantly perked up and the patient came around and felt much better. They were still concerned given her history so they called EMS. On arrival by EMS the patient's blood sugar was in the 300s. They elected to transport her given her history and concern for potentially untreated UTI. Patient is alert and oriented and corroborates history. She states that she has a mild generalized headache but otherwise feels okay. She denies any urinary complaints. No abdominal pain, back pain, chest pain, shortness of breath, lower extremity pain or swelling, coughing, fevers. Patient denies any history of DKA. TRAVEL OUTSIDE OF THE [place] IN LAST 30 DAYS: No - Related Data Allergies/Adverse Reactions: No Known Allergies Allergy (Verified 12/14/18 15:04) Past Medical History - Social History Smoking Status: Unknown if Ever Smoked Family History: None - Past Medical History Cardiac Medical History: Reports: Hx Hypercholesterolemia, Hx Hypertension Endocrine Medical History: Reports: Hx Diabetes Mellitus Type 2 Renal/ Medical History: Denies: Hx Peritoneal Dialysis GI Medical History: Reports: Hx Gastroesophageal Reflux Disease Past Surgical History: Reports: Hx Breast Surgery - lumpectomy, Hx Cholecystectomy Review of Systems - Review of Systems Notes: As per HPI Physical Exam - Vital signs Vitals: Temp 98.3 F 05/03/20 10:33 - General General appearance: Appears well, Alert In distress: None - HEENT Head: Normocephalic, Atraumatic Eyes: Normal Conjunctiva: Normal Extraocular movements intact: Yes Pupils: PERRL Ears: Normal Mouth/Lips: Normal Mucous membranes: Moist Pharynx: Normal Neck: Normal, Supple - Respiratory Respiratory status: No respiratory distress Chest status: Nontender Breath sounds: Normal Chest palpation: Normal - Cardiovascular Rhythm: Regular Heart sounds: Normal auscultation - Abdominal Inspection: Normal Distension: No distension Bowel sounds: Normal Tenderness: Nontender Organomegaly: No organomegaly - Extremities General upper extremity: Normal inspection, Nontender, Normal color, Normal ROM, Normal temperature General lower extremity: Normal inspection, Nontender, Normal color, Normal ROM, Normal temperature, Normal weight bearing. No: Pete's sign - Neurological Neuro grossly intact: Yes Cognition: Normal Orientation: AAOx4 Riner Coma Scale Eye Opening: Spontaneous Riner Coma Scale Verbal: Oriented Charissa Coma Scale Motor: Obeys Commands Riner Coma Scale Total: 15 Speech: Normal Additional motor exam normals: No: Pronator drift - Psychological Associated symptoms: Normal affect, Normal mood - Skin Skin Temperature: Warm Skin Moisture: Dry Skin Color: Normal Course - Re-evaluation Re-evalutation: 05/03/20 12:50 Normal white count with a slight left shift. 05/03/20 12:50 Evidence of slight dehydration the chemistry as well as elevated blood glucose and a lactic acid. 05/03/20 12:50 AST and ALT slightly elevated likely related to chronic medications 05/03/20 12:51 Urinalysis showing blood significant glucose with trace leuks, some bacteria and WBCs. Not overly impressive for UTI however potential for residual infection from her previous treatment given her history, uncontrolled hyperglycemia. Her initial troponin is slightly elevated at 0.015. Her EKG is within normal limits. EKG at 1055, sinus rhythm at 97 bpm. Normal intervals. No STEMI. No evidence of acute ischemic process. Interpreted by ED attending. We will plan to repeat the troponin. We will also repeat the lactic acid after she is given another bolus of fluids and treated for hyperglycemia. 05/03/20 12:53 CT head showing slight posterior hematoma, this is consistent with the history of prior fall over the summer, residual from that time. Not acute. 05/03/20 16:00 Repeat troponin just slightly elevated above first. Both these levels are equivocal in the absence of any ischemic type symptoms whatsoever. I called and spoke with the search director on, Dr. Vargas who evaluated both EKGs and troponins with me. We discussed the patient, her history and the case at hand including laboratory studies. He advised that this is equivocal and well within the margin of normality given the sensitivity of the troponin studies. Patient remains chest pain-free. She did not take her antihypertensives this morning. Her hypoglycemia was corrected with fluids and insulin. She is significantly improved. Her urinalysis is also somewhat equivocal however given her history of uncontrolled hyperglycemia and UTIs in the past that have led to delirium we will treat the small evidence of infection there and sent for culture per the daughter's request. Patient is pending neurology work-up and follow-up and they will see the neurologist as scheduled and discussed. At this point after discussing with search director and Dr. Mg we feel it is appropriate to discharge the patient from the emergency department. She is hemodynamically stable and appropriate for discharge. We discussed with her and her daughter the importance of outpatient follow-up and advised they return here or any ER immediately with any new, persistent or worsening symptoms. They verbalized understood and agreed. - Vital Signs Vital signs: Temp Pulse Resp BP Pulse Ox 98.3 F 17 165/101 H 97 05/03/20 10:33 05/03/20 13:02 05/03/20 13:02 05/03/20 13:02 - Laboratory Result Diagrams: 05/03/20 11:12 05/03/20 11:12 Laboratory results interpreted by me: 05/03/20 05/03/20 05/03/20 11:12 11:12 11:12 Lymph % (Auto) 11.6 L Seg Neutrophils % 79.2 H Sodium 131.7 L Chloride 96 L Est GFR (MDRD) Non-Af 58 L Glucose 326 H POC Glucose Lactic Acid 3.6 H AST 42 H ALT 48 H Total Protein 6.1 L Urine Glucose (UA) Urine Blood Leukocyte Esterase Rfl 05/03/20 05/03/20 05/03/20 11:47 13:59 14:00 Lymph % (Auto) Seg Neutrophils % Sodium Chloride Est GFR (MDRD) Non-Af Glucose POC Glucose 194 H Lactic Acid 2.4 H AST ALT Total Protein Urine Glucose (UA) >=500 H Urine Blood MODERATE H Leukocyte Esterase Rfl TRACE H Discharge - Discharge Clinical Impression: History of hypertension Diabetes mellitus with hyperglycemia Qualifiers: Diabetes mellitus type: type 2 Diabetes mellitus marine oil terminal superintendent insulin use: without marine oil terminal superintendent use Qualified Code(s): E11.65 - Type 2 diabetes mellitus with hyper glycemia UTI (urinary tract infection) Qualifiers: Urinary tract infection type: site unspecified Hematuria presence: without hematuria Qualified Code(s): N39.0 - Urinary tract infection, site not specified Condition: Stable Disposition: HOME, SELF-CARE Instructions: Urinary Tract Infection ([facility]), Hyperglycemia ([facility]) Additional Instructions: Follow-up with your regular doctor in 2 to 3 days for reevaluation. Return here or any ER immediately with any new, persistent or worsening symptoms. Please see the neurologist as scheduled and discussed. Prescriptions: Cephalexin Monohydrate [Keflex 500 mg Capsule] 500 mg PO Q6H 10 Days #40 capsule Referrals: ELIZABETH HIGUERA MD [Primary Care Provider] - Follow up as needed
[2020-05-03 11:52] LABS: ABSOLUTE EOSINOPHILS # (AUTO) 0.1 10^3/uL (0.0-0.6); ABSOLUTE LYMPHOCYTES (AUTO) 0.6 10^3/uL (0.5-4.7); ABSOLUTE MONOCYTES (AUTO) 0.4 10^3/uL (0.1-1.4); ABSOLUTE NEUT (AUTO) 4.2 10^3/uL (1.7-8.2); BASOPHILS % (AUTO) 0.5 % (0-2); EOSINOPHILS % (AUTO) 1.4 % (0-6); HEMATOCRIT 37.8 % (36.0-47.0); HEMOGLOBIN 13.2 g/dL (12.0-15.5); LYMPHOCYTES % (AUTO) 11.6 % (13-45); MEAN CORPUSCULAR HEMOGLOBIN 32.7 pg (27.0-33.4); MEAN CORPUSCULAR HGB CONC 34.8 g/dL (32.0-36.0); MEAN CORPUSCULAR VOLUME 94 fl (80-97); MONOCYTES % (AUTO) 7.3 % (3-13); PLATELET COUNT 233 10^3/uL (150-450); RED BLOOD COUNT 4.03 10^6/uL (3.72-5.28); RED CELL DISTRIBUTION WIDTH 13.1 % (11.5-14.0); SEGMENTED NEUTROPHILS % (AUTO) 79.2 % (42-78); TOTAL CELLS COUNTED % (AUTO) 100 %; WHITE BLOOD COUNT 5.2 10^3/uL (4.0-10.5)
[2020-05-03 11:58] LABS: VENOUS BLOOD BASE EXCESS -3.4 mmol/L; VENOUS BLOOD HCO3 22.8 mmol/L (20-32); VENOUS BLOOD PCO2 44.6 mmHg (35-63); VENOUS BLOOD PH 7.33 (7.30-7.42)
[2020-05-03 12:02] LABS: INTERNATIONAL RATION (INR) 0.99; PROTHROMBIN TIME 13.3 SEC (11.4-15.4)
[2020-05-03 12:13] LABS: ALKALINE PHOSPHATASE 83 U/L (38-126); ANION GAP 12 (5-19); ASPARTATE AMINO TRANSFERASE 42 U/L (14-36); BILIRUBIN,TOTAL 0.5 mg/dL (0.2-1.3); BLOOD UREA NITROGEN 14 mg/dL (7-20); CALCIUM 9.2 mg/dL (8.4-10.2); CARBON DIOXIDE 24 mmol/L (22-30); CHLORIDE 96 mmol/L (98-107); GLUCOSE 326 mg/dL (75-110); POTASSIUM 4.4 mmol/L (3.6-5.0); TOTAL PROTEIN 6.1 g/dL (6.3-8.2)
[2020-05-03] MEDS ORDERED: INSULIN REG, HUMAN 100 UNIT/ML 3 ML VIAL (PYX) IV ONE (12:36)
[2020-05-03] MEDS ORDERED: NORMAL SALINE 1000 ML 1,000 ML IV ONE (12:36)
[2020-05-03] MEDS ORDERED: INSULIN REG, HUMAN 100 UNIT/ML 3 ML VIAL (PYX) SUBCUT ONE (12:37)
[2020-05-03 12:42] LABS: APPEARANCE,URINE CLEAR; BILIRUBIN,URINE NEGATIVE (NEGATIVE); COLOR,URINE YELLOW; GLUCOSE, URINE >=500 mg/dL (NEGATIVE); KETONES,URINE NEGATIVE (NEGATIVE); PROTEIN,URINE NEGATIVE (NEGATIVE); URINE SPECIFIC GRAVITY 1.013; UROBILINOGEN,URINE NEGATIVE mg/dL (<2.0)
--- NOTE | 2020-05-03 12:50 | RADIOLOGY REPORT (SQ) ---
EXAM DESCRIPTION: CT HEAD WITHOUT IMAGES COMPLETED DATE/TIME: 05/03/2020 12:31 pm REASON FOR STUDY: head injury on plavix COMPARISON: CT head 04/15/2020, 04/11/2020. TECHNIQUE: Axial images acquired through the brain without intravenous contrast. Images reviewed wi th bone, brain and subdural windows. Images stored on PACS. All CT scanners at this facility use dose modulation, iterative reconstruction, and/or weight based d osing when appropriate to reduce radiation dose to as low as reasonably achievable (ALARA). [facility]: Dose Right [facility]: CareDose [facility]: Dose Right [facility]: Teradose 4D [facility]: 500px RADIATION DOSE: CT Rad equipment meets quality standard of care and radiation dose reduction techniq ues were employed. CTDIvol: 53.2 mGy. DLP: 991 mGy-cm.mGy. LIMITATIONS: None. FINDINGS: VENTRICLES: Prominent. CEREBRUM: No mass effect. No hemorrhage. No midline shift. Areas of low density in the white matte r most likely due to chronic micro-vascular ischemic change. No evidence for acute territorial infar ction. CEREBELLUM: No hemorrhage. No alteration of density. No evidence for acute infarction. EXTRAAXIAL SPACES: Age-related involutional change. No fluid collections. ORBITS AND GLOBE: Symmetrical contour of the globes. CALVARIUM: No depressed fracture. PARANASAL SINUSES: No air-fluid level. SOFT TISSUES: There is a small scalp hematoma at the left posterior parietal region. IMPRESSION: 1. No acute intracranial hemorrhage or depressed calvarial fracture. Small scalp hemato ma at the left posterior parietal region. 2. Chronic changes of atrophy and microvascular ischemia. EVIDENCE OF ACUTE STROKE: NO. TECHNICAL DOCUMENTATION: JOB ID: [id number] [id number] Quality ID # [id number]: Final reports with documentation of one or more dose reduction techniques (e.g., Au tomated exposure control, adjustment of the mA and/or kV according to patient size, use of iterative reconstruction technique) 2010 [employer]- All Rights Reserved Reading location - IP/workstation name: [email or web address]
[2020-05-03] MEDS ORDERED: ACETAMINOPHEN 325 MG TABLET PO ONE (12:55)
--- NOTE | 2020-05-03 12:55 | RADIOLOGY REPORT (SQ) ---
EXAM DESCRIPTION: CT CERVICAL SPINE WITHOUT IMAGES COMPLETED DATE/TIME: 05/03/2020 12:30 pm REASON FOR STUDY: head injury on plavix COMPARISON: CT cervical spine 07/14/2018. TECHNIQUE: Axial images acquired through the cervical spine without intravenous contrast. Images re viewed with lung, soft tissue and bone windows. Reconstructed coronal and sagittal MPR images review ed. Images stored on PACS. All CT scanners at this facility use dose modulation, iterative reconstruction, and/or weight based d osing when appropriate to reduce radiation dose to as low as reasonably achievable (ALARA). [facility]: Dose Right [facility]: CareDose [facility]: Dose Right [facility]: Teradose 4D [facility]: [employer] RADIATION DOSE: CT Rad equipment meets quality standard of care and radiation dose reduction techniq ues were employed. CTDIvol: 17.7 mGy. DLP: 303 mGy-cm. mGy. LIMITATIONS: None. FINDINGS: ALIGNMENT: Anatomic. MINERALIZATION: Normal. VERTEBRAL BODIES: No fractures or dislocation. DISCS: Multilevel disc space narrowing with osteophytes. FACETS, LATERAL MASSES, POSTERIOR ELEMENTS: Facet arthropathy. No fractures. No dislocation. No ac elim ira findings. HARDWARE: None in the spine. VISUALIZED RIBS: No fractures. SOFT TISSUES: No significant or acute findings. IMPRESSION: No acute fracture at the cervical spine. Multilevel degenerative changes. TECHNICAL DOCUMENTATION: JOB ID: [id number] Quality ID # [id number]: Final reports with documentation of one or more dose reduction techniques (e.g., Au tomated exposure control, adjustment of the mA and/or kV according to patient size, use of iterative reconstruction technique) 2010 [employer]- All Rights Reserved Reading location - IP/workstation name: [email or web address]
--- NOTE | 2020-05-03 14:17 | RADIOLOGY REPORT (SQ) ---
EXAM DESCRIPTION: CHEST SINGLE VIEW IMAGES COMPLETED DATE/TIME: 05/03/2020 1:36 pm REASON FOR STUDY: elevated trop COMPARISON: 04/14/2020 EXAM PARAMETERS: NUMBER OF VIEWS: One view. TECHNIQUE: Single frontal radiographic view of the chest acquired. RADIATION DOSE: NA LIMITATIONS: None. FINDINGS: LUNGS AND PLEURA: Chronic elevation right diaphragm. No opacities, masses or pneumothorax . No pleural effusion. MEDIASTINUM AND HILAR STRUCTURES: No masses. Contour normal. HEART AND VASCULAR STRUCTURES: Heart normal in size. Normal vasculature. BONES: No acute findings. HARDWARE: None in the chest. OTHER: No other significant finding. IMPRESSION: NO ACUTE RADIOGRAPHIC FINDING IN THE CHEST. TECHNICAL DOCUMENTATION: JOB ID: [id number] 2010 [employer]- All Rights Reserved Reading location - IP/workstation name: [email or web address]
[2020-05-03 16:52] VITALS: BP 180/85
--- NOTE | 2020-05-03 19:45 | EKG REPORT ---
SEVERITY:- NORMAL ECG - SINUS RHYTHM : Confirmed by: Gonzales Scott MD 03-May-2020 19:44:23
--- NOTE | 2020-05-03 19:45 | EKG REPORT ---
SEVERITY:- ABNORMAL ECG - SINUS RHYTHM NONSPECIFIC T ABNORMALITIES, LATERAL LEADS : Confirmed by: Gonzales Scott MD 03-May-2020 19:44:13
== END 2020-05-03 16:52 | disposition home or self-care (01) ==
LOC: ER 10:32
DX: S09.90XA Unspecified injury of head, initial encounter (principal); W19.XXXA Unspecified fall, initial encounter; E78.00 Pure hypercholesterolemia, unspecified; E11.9 Type 2 diabetes mellitus without complications; I10 Essential (primary) hypertension; Z91.81 History of falling; Z85.3 Personal history of malignant neoplasm of breast
CPT/HCPCS: 93005; 99284; 96372; 96360; 36415; 87040; 87086; 82962; 83605; 85025; 85610; 87088; 80053; 81001; 84484; 82803; 71045; 70450; 72125; 93010; A9270 ×2; J7030; 87186; J1815